=== PATIENT | female | born 1940 | race Hispanic/Latino ===

== ENCOUNTER 2017-05-20 18:40 | Emergency (ER) | payer MEDICARE, MEDICAID ==
[2017-05-20 19:06] VITALS: BMI 25.4
[2017-05-20 19:09] VITALS: BP 111/72; PULSE 93; RESP 18; TEMP 98.1; O2SAT 98
[2017-05-20] MEDS ORDERED: Silver Sulfadiazine 1% Cream (20 gm) TOP STA (20:23)
[2017-05-20] MEDS ORDERED: TraMADol/Apap 37.5/325 mg Tab PO STA (20:23)
[2017-05-20] MEDS ORDERED: TDAP Vaccine 0.5 mL Syr IM ONE (20:23)
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
== END 2017-05-20 20:50 | disposition home or self-care (01) ==
LOC: ED 18:40
DX: T23.271A Burn of second degree of right wrist, initial encounter (principal); X11.8XXA Contact with other hot tap-water, initial encounter; E78.5 Hyperlipidemia, unspecified; I10 Essential (primary) hypertension; E11.9 Type 2 diabetes mellitus without complications; Z23 Encounter for immunization

== ENCOUNTER 2017-08-11 17:03 | Emergency (ER) | payer MEDICARE, MEDICAID ==
[2017-08-11 17:04] VITALS: BMI 25.4
[2017-08-11 17:46] VITALS: RESP 18; TEMP 98.4; O2SAT 100
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
[2017-08-11 19:06] LABS: EOS % 0.2 % (1.5-5.0); GRAN # 10.59 (1.4-6.5); HEMATOCRIT 35.1 % (36.0-48.0); LYMPH % 15.3 % (22.0-35.0); MEAN CELL VOLUME 89.3 fl (80.0-105.0); MEAN CORPUSCULAR HGB CONC 32.5 g/dl (31.0-37.0); MEAN PLATELET VOLUME 8.9 fl (7.0-11.0); MONO # 0.6 (0.1-0.6); MONO % 4.5 % (1.0-6.0); RED CELL DISTRIBUTION WIDTH 13.5 % (11.5-14.5); WHITE BLOOD COUNT 13.2 10^3/ul (4.5-11.0)
[2017-08-11 19:16] LABS: ALB/GLOB RATIO 1.3 (1.1-1.8); ALKALINE PHOSPHATASE 54 U/L (38-126); ALT/SGPT 33 U/L (7-56); AST/SGOT 28 U/L (14-36); BILIRUBIN,TOTAL 0.7 mg/dL (0.2-1.3); BLOOD UREA NITROGEN 22 mg/dL (7-21); CALCIUM 8.8 mg/dL (8.4-10.5); CARBON DIOXIDE 24 mmol/L (21-33); CHLORIDE 102 mmol/L (98-107); GFR AFRICAN-AMERICAN > 60; GLUCOSE,RANDOM 248 mg/dL (70-110); POTASSIUM 4.4 mmol/L (3.6-5.0); SODIUM 136 mmol/L (132-148); TOTAL PROTEIN 6.8 g/dL (5.8-8.3)
--- NOTE | 2017-08-11 19:25 | ED PDOC ---
Physical Exam Vital Signs Temp Pulse Resp BP Pulse Ox 08/11/17 17:40 98.4 F 98 H 18 152/81 H 100 Medical Decision Making ED Course and Treatment: 08/11/17 19:00 Patient transferred to [facility] by Dr. Andrade.Case discussed in full .HPI noted. Currently awaiting Abd/Pelvis/Chest CT findings. 08/11/17 22:19 Reviewed radiology, CT Chest shows: Lungs: No mass. No consolidation. Pleural spaces: No significant effusion. No pneumothorax or hemothorax. Heart: No cardiomegaly. No significant pericardial effusion. Vasculature: The great vessels are intact. No aneurysmal dilatation of the thoracic aorta. Lymph nodes: Scattered lymph nodes within the mediastinum and supraclavicular region, all nonpathologically enlarged, a nonspecific finding. Bones: No acute fractures within either the sternum, ribs or thoracic vertebral bodies. No scapular or clavicular fractures are noted. 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 The thyroid gland is moderately enlarged, and heterogeneous (right greater than left). Mass effect is identified on the patient's trachea, likely long-standing. IMPRESSION: No significant intrathoracic injury, as detailed above. Heterogeneous, enlarged thyroid gland, with mass effect on the trachea. CT Abdomen and Pelvis shows: ABDOMEN: Liver: The hepatic parenchyma is intact. No perihepatic fluid. Gallbladder and bile ducts: The gallbladder is decompressed. No calcified stones. No significant intra- or extrahepatic biliary ductal dilation. Pancreas: Enhances homogeneously. No ductal dilation. No discrete mass. No peripancreatic fluid. Spleen: The splenic parenchyma is intact, without perisplenic fluid. Adrenals: No acute findings. Kidneys and ureters: No acute findings. No hydronephrosis or renal calculi. No discrete solid mass. No perinephric fluid. PELVIS: Bladder: Decompressed, limiting its evaluation. Reproductive: Atrophic. ABDOMEN and PELVIS: Stomach and bowel: No obstruction. No mucosal thickening. Peritoneum: No free fluid. No free air. Lymph nodes: No pathologically enlarged lymph nodes. Vasculature: Intact. Bones: No acute fracture. IMPRESSION: No hollow or solid visceral organ injury. No acute fracture. 08/11/17 23:15 On re-evaluation, patient feels better and is in no acute distress. I have discussed the results and plan with the patient, who expresses understanding. Patient in agreement with plan to be discharged home. Patient is stable for discharge. Patient was instructed to follow up with physician or return if symptoms worsen or new concerning symptoms arise. 08/12/17 06:13 - Lab Interpretations Lab Results: 08/11/17 18:56 08/11/17 18:56 Lab Results 08/11/17 18:56: Sodium 136, Potassium 4.4, Chloride 102, Carbon Dioxide 24, Anion Gap 14, BUN 22 H, Creatinine 1.0, Est GFR ( Amer) > 60, Est GFR ( Non-Af Amer) 54, Random Glucose 248 H, Calcium 8.8, Total Bilirubin 0.7, AST 28 , ALT 33, Alkaline Phosphatase 54, Total Protein 6.8, Albumin 3.8, Globulin 3.0 , Albumin/Globulin Ratio 1.3 08/11/17 18:56: WBC 13.2 H D, RBC 3.93, Hgb 11.4 L, Hct 35.1 L, MCV 89.3, MCH 29.0, MCHC 32.5, RDW 13.5, Plt Count 185, MPV 8.9, Gran % 80.0 H, Lymph % (Auto ) 15.3 L, Simpson % (Auto) 4.5, Eos % (Auto) 0.2 L, Baso % (Auto) 0.0, Gran # 10.59 H, Lymph # 2.0, Simpson # 0.6, Eos # 0.0, Baso # 0.00 - RAD Interpretation Radiology Orders: 08/11/17 18:14 CHEST,ABD,PEL W/IV CONT ONLY [CT] Stat [employer] Form Placing Supervisor: Radiologist - Medication Orders Current Medication Orders: Discontinued Medications Acetaminophen (Tylenol 325mg Tab) 650 mg PO STAT STA Stop: 08/11/17 18:17 Last Admin: 08/11/17 18:43 Dose: 650 mg [facility] Pain/Vitals Document 08/11/17 18:43 [facility] (Rec: 08/11/17 18:43 [facility]-[id number]) Pain Reassessment Is This A Pain ReAssessment? No Disposition/Present on Arrival - Present on Arrival Any Indicators Present on Arrival: No History of DVT/PE: No History of Uncontrolled Diabetes: No Urinary Catheter: No History of Decub. Ulcer: No History Surgical Site Infection Following: None - Disposition Have Diagnosis and Disposition been Completed?: Yes Diagnosis: Fall (on) (from) other stairs and steps, initial encounter, Musculoskeletal pain Disposition: HOME/ ROUTINE Disposition Time: 23:16 Patient Plan: Discharge Condition: GOOD Discharge Instructions (ExitCare): Musculoskeletal Pain (ED) Additional Instructions: Rest/no strenuous physical activity/take meds as prescribed/follow up with your doctor this week Prescriptions: traMADol/Acetaminophen [Ultracet 325 MG-37.5 MG] 1 tab PO Q6 PRN #12 tab PRN Reason: Pain Referrals: Isaac Salinas MD [Primary Care Provider] - Follow up with primary Forms: [employer] (Urdu)
[2017-08-11] MEDS ORDERED: Iohexol 350 MG/100 ML VIAL ONE (19:35)
--- NOTE | 2017-08-11 22:17 | CT ---
EXAM: CT Abdomen and Pelvis With Intravenous Contrast CLINICAL HISTORY: 77 years old, female; Injury or trauma; Fall; Initial encounter; Abrasion; Patient HX: Right side pain; Additional info: Upper back and hip pain after fall TECHNIQUE: Axial computed tomography images of the abdomen and pelvis with intravenous contrast. All CT scans at this facility use one or more dose reduction techniques, viz.: automated exposure control; ma/kV adjustment per patient size (including targeted exams where dose is matched to indication; i.e. head); or iterative reconstruction technique. Coronal and sagittal reformatted images were created and reviewed. CONTRAST: 100 mL of OMNI administered intravenously. COMPARISON: No relevant prior studies available. FINDINGS: ABDOMEN: Liver: The hepatic parenchyma is intact. No perihepatic fluid. Gallbladder and bile ducts: The gallbladder is decompressed. No calcified stones. No significant intra- or extrahepatic biliary ductal dilation. Pancreas: Enhances homogeneously. No ductal dilation. No discrete mass. No peripancreatic fluid. Spleen: The splenic parenchyma is intact, without perisplenic fluid. Adrenals: No acute findings. Kidneys and ureters: No acute findings. No hydronephrosis or renal calculi. No discrete solid mass. No perinephric fluid. PELVIS: Bladder: Decompressed, limiting its evaluation. Reproductive: Atrophic. ABDOMEN and PELVIS: Stomach and bowel: No obstruction. No mucosal thickening. Peritoneum: No free fluid. No free air. Lymph nodes: No pathologically enlarged lymph nodes. Vasculature: Intact. Bones: No acute fracture. IMPRESSION: No hollow or solid visceral organ injury. No acute fracture. EXAM: CT Chest With Intravenous Contrast CLINICAL HISTORY: 77 years old, female; Injury or trauma; Fall; Initial encounter; Abrasion; Patient HX: Right side pain; Additional info: Upper back and hip pain after fall TECHNIQUE: Axial computed tomography images of the chest with intravenous contrast. All CT scans at this facility use one or more dose reduction techniques, viz.: automated exposure control; ma/kV adjustment per patient size (including targeted exams where dose is matched to indication; i.e. head); or iterative reconstruction technique. Coronal and sagittal reformatted images were created and reviewed. CONTRAST: 100 mL of OMNI administered intravenously. COMPARISON: No relevant prior studies available. FINDINGS: Lungs: No mass. No consolidation. Pleural spaces: No significant effusion. No pneumothorax or hemothorax. Heart: No cardiomegaly. No significant pericardial effusion. Vasculature: The great vessels are intact. No aneurysmal dilatation of the thoracic aorta. Lymph nodes: Scattered lymph nodes within the mediastinum and supraclavicular region, all non-pathologically enlarged, a nonspecific finding. Bones: No acute fractures within either the sternum, ribs or thoracic vertebral bodies. No scapular or clavicular fractures are noted. 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 The thyroid gland is moderately enlarged, and heterogeneous (right greater than left). Mass effect is identified on the patient's trachea, likely long-standing. IMPRESSION: No significant intrathoracic injury, as detailed above. Heterogeneous, enlarged thyroid gland, with mass effect on the trachea.
[2017-08-11 23:25] VITALS: BP 141/73; PULSE 82
== END 2017-08-11 23:25 | disposition home or self-care (01) ==
LOC: ED 17:03
DX: M79.1 Myalgia (principal); E11.9 Type 2 diabetes mellitus without complications; I10 Essential (primary) hypertension; W10.9XXA Fall (on) (from) unspecified stairs and steps, initial encounter
CPT/HCPCS: 71260; 74177; 80053; 85025; 99284; Q9967